=== PATIENT | male | born 1985 | race African-American/Black ===

== ENCOUNTER 2023-10-27 21:25 | Emergency (ER) | payer MEDICAID ==
[~2023-10-27] VITALS: Ht 193 cm; Wt 105.0 kg
[2023-10-27 21:31] VITALS: TEMP 98.2; O2SAT 100
[2023-10-28] MEDS ORDERED: CYCL5TAB MT (00:58)
[2023-10-28] MEDS ORDERED: NAPR220C61 MT (00:58)
[2023-10-28 01:02] VITALS: BP 139/91; PULSE 92; RESP 14
[2023-10-28] MEDS: IBUPROFEN 600MG TABLET PO ONE (01:02)
== END 2023-10-28 01:21 | disposition home or self-care (01) ==
LOC: ER 21:25
DX: M54.50 Low back pain, unspecified (principal)
CPT/HCPCS: 99282; 99283